=== PATIENT | male | born 1955 | race Caucasian/White ===

== ENCOUNTER 2020-08-16 17:02 | Emergency (ER) | payer MEDICARE, OTHER ==
[~2020-08-16] VITALS: Ht 172.7 cm; Wt 81.6 kg
[2020-08-16 17:20] VITALS: BP 109/73
[2020-08-16] MEDS ORDERED: HYDROCODONE/APAP 5/325MG TABLET ONE (17:39)
[2020-08-16] MEDS ORDERED: KETOROLAC TROMETHAMINE 15 MG/ML VIAL ONE (17:39)
[2020-08-16] MEDS ORDERED: HYDROCODONE/APAP 5/325MG TABLET PO ONE (18:00)
[2020-08-16] MEDS ORDERED: KETOROLAC TROMETHAMINE INJ 30 MG/ML VIAL IM ONE (18:00)
[2020-08-16] MEDS ORDERED: HYDR-4303 PO (18:14)
[2020-08-16] MEDS ORDERED: NAPR500T6 PO (18:14)
--- NOTE | 2020-08-16 18:24 | NUR ---
Patient discharged to home in stable condition. Written and verbal after care instructions given. Patient verbalizes understanding of instruction.
== END 2020-08-16 18:23 | disposition home or self-care (01) ==
LOC: ER 17:02
DX: M19.012 Primary osteoarthritis, left shoulder (principal); M19.011 Primary osteoarthritis, right shoulder; E11.9 Type 2 diabetes mellitus without complications; I10 Essential (primary) hypertension; F32.9 Major depressive disorder, single episode, unspecified; F17.200 Nicotine dependence, unspecified, uncomplicated; Z79.899 Other long term (current) drug therapy
CPT/HCPCS: 71045; 73020; 93005; 96372; 99284; 99406; J1885